=== PATIENT | male | born 2000 | race Caucasian/White ===

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

== ENCOUNTER 2018-10-28 16:43 | Emergency (ER) | payer MEDICAID ==
[~2018-10-28] VITALS: Ht 188 cm; Wt 93.0 kg
[2018-10-28 16:43] VITALS: BP 128/79
--- NOTE | 2018-10-28 16:43 | NUR ---
PATIENT AMBULATED TO ER BED 12.
--- NOTE | 2018-10-28 16:45 | NUR ---
PATIENT IS A 17 Y/O MALE WHO PRESENTS TO THE ED C/O COUGH. PT STATES THAT IT HAS BEEN ONGOING X6 MONTHS AND ONLY OCCURS WHEN HE EATS. PT REPORTS 6/10 ACHING PAIN THAT DOES NOT RADIATE. PT DENIES CP, SOB, N/V/D. 99% O2 ON RA, NO COUGH NOTED IN ED. PT AWAKE AND ALERT, RR EVEN/UNLABORED. PT REPOSITIONED FOR COMFORT, BED IN LOWEST POSITION. ER MD DR. ARTHUR NOTIFIED. WILL CONTINUE TO MONITOR.
[2018-10-28 17:30] VITALS: BP 119/85
--- NOTE | 2018-10-28 17:30 | NUR ---
Patient discharged with v/s stable. Written and verbal after care instructions given and explained. Patient alert, oriented and verbalized understanding of instructions. Ambulatory with steady gait. All questions addressed prior to discharge. ID band removed. Patient advised to follow up with PMD. Rx of PROTONIX 40MG, PREDNISONE 50MG, ZYRTEC 10MG AND FLONASE 50MCG/ACTUATION given. Patient educated on indication of medication including possible reaction and side effects. Opportunity to ask questions provided and answered.
== END 2018-10-28 17:30 | disposition home or self-care (01) ==
LOC: MED 16:43
DX: J30.9 Allergic rhinitis, unspecified (principal); K21.9 Gastro-esophageal reflux disease without esophagitis
CPT/HCPCS: 99283

== ENCOUNTER 2022-12-19 17:00 | Emergency (ER) | payer MEDICAID ==
[~2022-12-19] VITALS: Ht 188 cm; Wt 93.0 kg
[2022-12-19 17:14] VITALS: BP 139/92
--- NOTE | 2022-12-19 17:31 | NUR ---
22/M WALKED IN C/O RECTAL PAIN AND BLEEDING ONSET 3 WKS. PT REPORTS SEEING BRIGHT RED BLOOD ON TOILET PAPER. PT ALSO C/O RIGHT ELLIS PAIN ONSET 3 DAYS AGO. DENIES FALL OR INJURY. PMH: DENIES
--- NOTE | 2022-12-19 18:35 | NUR ---
Pt bibs for bright red blood x 3 weeks. Pt notices bright red blood on toilet paper every evening. Pt denies trauma. Pt also complains of R springer pain. Pt states he feels 3/10 pain at right springer with unkown reason. No abnormalities or deformities noted on r leg. Pt a/o x 4, vss, no ss of acute distress, breathing equal and unlabored, speech clear.
[2022-12-19] MEDS ORDERED: DOCU-299 PO (19:10)
[2022-12-19] MEDS ORDERED: HYDR-2734 TP (19:10)
--- NOTE | 2022-12-19 19:23 | NUR ---
Mid level provider assessed rectum with me as shaperon. Provider gave order for dc. Pt is a/o x 4, vss, no ss of acute distress, breathing equal and unlabored, speech clear. Pt verbalized understanding and will follow up with primary. Steady gait witnessed.
== END 2022-12-19 19:23 | disposition home or self-care (01) ==
LOC: MED 17:00
DX: M79.604 Pain in right leg (principal); K60.2 Anal fissure, unspecified; Z79.899 Other long term (current) drug therapy
CPT/HCPCS: 73590; 99283; Q0092

== ENCOUNTER 2023-11-06 11:21 | Emergency (ER) | payer MEDICAID ==
[~2023-11-06] VITALS: Ht 188 cm; Wt 94.3 kg
[~2023-11-06 11:21] MED LIST: DOCU-299 PO; HYDR-2734 TP
[2023-11-06 11:47] VITALS: BP 144/86; PULSE 96; RESP 16; TEMP 98.4; O2SAT 98
[2023-11-06] MEDS ORDERED: AZIT250T4 PO (15:19)
[2023-11-06] MEDS ORDERED: PROM118S5 PO (15:19)
[2023-11-06] MEDS ORDERED: ALBU0.0912 IH (15:19)
== END 2023-11-06 15:26 | disposition home or self-care (01) ==
LOC: MED 11:21
DX: J20.9 Acute bronchitis, unspecified (principal); R03.0 Elevated blood-pressure reading, without diagnosis of hypertension; Z79.899 Other long term (current) drug therapy
CPT/HCPCS: 71045; 99283